=== PATIENT | female | born 1980 | race Caucasian/White ===

== ENCOUNTER 2025-07-03 20:19 | Emergency (ER) | payer BC, OTHER ==
[~2025-07-03] VITALS: Ht 160 cm; Wt 49.9 kg
[2025-07-03] MEDS ORDERED: LIDOCAINE/PRILOCAINE (5GM) 5 GM TUBE TP ONE (20:38)
[2025-07-03] MEDS: LIDOCAINE/PRILOCAINE (5GM) 5 GM TUBE TP ONE (20:40)
[2025-07-03] MEDS ORDERED: HYDROCODONE/APAP 5/325MG TABLET ONE (20:41)
[2025-07-03] MEDS: HYDROCODONE/APAP 5/325MG TABLET PO ONE (20:47)
[2025-07-03 21:43] VITALS: BP 115/70; TEMP 98; O2SAT 98
== END 2025-07-03 21:44 | disposition home or self-care (01) ==
LOC: ER 20:21
DX: S60.221A Contusion of right hand, initial encounter (principal); S50.311A Abrasion of right elbow, initial encounter; X50.9XXA Other and unspecified overexertion or strenuous movements or postures, initial encounter; Y93.01 Activity, walking, marching and hiking; Y92.89 Other specified places as the place of occurrence of the external cause; Y99.8 Other external cause status
CPT/HCPCS: 73130-TC